=== PATIENT | female | born 1960 | race Caucasian/White ===

== ENCOUNTER 2022-04-26 20:10 | Emergency (ER) | payer OTHER ==
--- OUTSIDE RECORDS SUMMARY | 2022-04-26 20:13 | XMS REPORT | Continuity of Care Document ---
:1960 Author Organization [facility] t Address [address] [place] [address] Care Team Providers Name Role Phone CabaGoran Primary Care Physician DERRICK ZELAYA Attending Clinician Unavailable Kerry Donaldson MA Attending Clinician Unavailable DARREN DELGADILLO Attending Clinician Unavailable Darren Wheeler Attending Clinician Unknown, Attending Attending Clinician Unavailable ERICK TIDWELL Attending Clinician Unavailable Erick Tidwell MD Attending Clinician Payers Payer Name Policy Type Policy Number Effective Date Expiration Date Ramos [facility] [id number] 2021 00:00:00 Problems Condition Condition Condition Status Onset Resolution Last Treating Co mments Source Name Details Category Date Date Treatment Clinician Date No known No known Disease Unive rs active active ity of problems problems [facility] Allergies, Adverse Reactions, Alerts Allergy Allergy Status Severity Reaction(s) Onset Inactive Treating Comm ents Source Name Type Date Date Clinician NO KNOWN Drug Active Univers ALLERGIE Class ity of S [facility] Social History Social Habit Start Date Stop Date Quantity Comments Source Exposure to Not sure University SARS-CoV-2 [facility] (event) [place] Tobacco use and 2021-02-14 2021-02-14 Never used Universit y of exposure 00:00:00 00:00:00 [facility] Alcohol intake 2021-02-14 2021-02-14 Lifetime University of 00:00:00 00:00:00 non-drinker [facility] (finding) [place] Sex Ass[birth year] Universit y of 00:00:00 00:00:00 [facility] Smoking Status Start Date Stop Date Source Current every day smoker 2021-02-14 00:00:00 [facility] Medications Ordered Filled Start Stop Current Ordering Indication Dosage Frequency Signature Comments Components Source Medication Medication Date Date Medication? Clinician (SIG) Name Name No known 2020-08 No Univers medications 0-30 ity of 17:38: [address] No known 2020-08 No Univers medications 0-30 ity of 17:38: [address] No known 2020-08 No Univers medications 0-30 ity of 17:38: [address] No known No Univers medications ity of [facility] No known No Univers medications ity of [facility] Vital Signs Vital Name Observation Time Observation Value Comments Source Systolic blood 2021-06-22 21:56:00 133 mm[Hg] Univer sity of [facility] Diastolic blood 2021-06-22 21:56:00 81 mm[Hg] Unive rsity of [facility] Heart rate 2021-06-22 21:56:00 111 /min Universi ty [facility] Body temperature 2021-06-22 21:56:00 36.22 [facility] 2021-06-22 21:56:00 16 /min [facility] Body height 2021-06-22 21:56:00 [facility] Body weight 2021-06-22 21:56:00 102.558 kg [facility] BMI 2021-06-22 21:56:00 37.05 kg/m2 [facility] Oxygen saturation in 2021-06-22 21:56:00 99 /min [facility] Arterial blood by [facility] Pulse oximetry Branch Systolic blood 2021-02-14 15:16:00 126 mm[Hg] Univer sity of [facility] Diastolic blood 2021-02-14 15:16:00 55 mm[Hg] Unive rsity of [facility] Heart rate 2021-02-14 15:16:00 86 /min Universi ty [facility] Body temperature 2021-02-14 15:16:00 36.33 [facility] Respiratory rate 2021-02-14 15:16:00 17 /min [facility] Body weight 2021-02-14 15:16:00 110.814 kg [facility] Oxygen saturation in 2021-02-14 15:16:00 95 /min [facility] Arterial blood by [facility] Pulse oximetry Branch Procedures This patient has no known procedures. Encounters Start End Encounter Admission Attending Care Care Encounter Source Date/Time Date/Time Type Type Clinicians Facility Department ID 2022-03-13 [id number] ID 13:14:30 STANDISH [id number] [facility] 2022-03-12 Outpatient [facility] [id number] ID 13:41:19 STANDISH [id number] [facility] 2021-11-18 2021-11-18 Case ELENI Donaldson [id number] Univers 00:00:00 00:00:00 Management Kerry THOMPSON [id number] [id number] [id number] [place] 2021-06-22 2021-06-22 Outpatient [facility] [id number] [facility] 17:10:00 23:59:00 DARREN kuhn [facility] 2021-06-22 2021-06-22 [facility] ADAMA Delgadillo [id number] [facility] 17:10:00 23:59:00 Encounter Darren Patrick PEDIATRIC [id number] [id number] [id number] [facility] [address] [facility] 2021-06-22 2021-06-22 Outpatient [facility] [id number] Univers 17:10:00 17:10:00 DARREN [id number] willie o f [facility] 2021-06-22 2021-06-22 Urgent Darren Delgadillo [id number] Univers 16:51:20 17:06:20 Care Unknown, Attending PEDIATRIC [id number] [id number] [id number] [facility] 370 [facility] 2021-04-24 2021-04-24 Outpatient R [facility] [id number] Univers 10:20:00 10:20:[id number] [facility] 2021-04-24 2021-04-24 Outpatient R [facility] [id number] Univers 10:20:00 10:20:[address] [facility] 2021-02-14 2021-02-14 Office Adama Tidwell [id number] Univers 09:59:43 11:33:12 Visit Erick Pediatric [id number] [id number] [id number] [facility] 059 [facility] 2021-02-14 2021-02-14 Outpatient Nkechi TIDWELL [facility] [id number] Univers 10:20:00 10:20:00 ERICK tapia [facility] Results This patient has no known results.
[2022-04-26] MEDS ORDERED: MORPHINE 2 MG/ML SYR ONE ×3 (20:47→22:28)
[2022-04-26] MEDS ORDERED: NA CHLORIDE 0.9% 500 ML ONE (20:48)
[2022-04-26] MEDS ORDERED: ONDANSETRON 4 MG/2 ML VIAL ONE ×3 (20:48→23:05)
--- NOTE | 2022-04-26 20:57 | RAD REPORT ---
EXAM DESCRIPTION: RAD - Chest Single View - 04/26/2022 8:47 pm CLINICAL HISTORY: COUGH COMPARISON: Chest Pa And Lat (2 Views) dated 12/17/2020 FINDINGS: Lines: None. Lungs: No evidence of edema or pneumonia. Pleural: No significant pleural effusions or pneumothorax. Cardiac: The heart size is within normal limits. Mediastinum: Within normal limits. Bones: No acute fractures. Other: None IMPRESSION: No acute cardiopulmonary disease.
[2022-04-26 21:09] LABS: Urine Blood Negative (Negative); Urine Glucose Negative (Negative); Urine Protein Negative (Negative); Urine pH 5.5 (5.0-7.0)
[2022-04-26 21:19] LABS: Potassium 3.8 mmol/L (3.5-5.1)
[2022-04-26 21:35] LABS: Absolute Lymphocytes (CBC) 2.5 K/uL (0.7-4.9); Hematocrit 27.3 % (36.0-45.0); Lymphocytes % 13.5 % (15.3-44.8); MCV 63.2 fL (80-100); RBC Red Blood Cell Count 4.32 M/uL (3.86-4.86)
[2022-04-26 23:02] LABS: Anisocytosis 1+; Blood Morphology Comment NOTED (NOT SEEN); Hypochromasia 2+; Platelet Estimate INCR; Target Cells FEW; White Blood Cell Scan OK (OK)
[2022-04-26 23:03] LABS: Ovalocytes 2+; Stomatocytes 1+
[2022-04-26] MEDS ORDERED: HYDROMORPHONE HCL 0.5 MG/0.5 ML INJ ONE (23:05)
[2022-04-26] MEDS ORDERED: KETOROLAC 30 MG/ML INJ ONE (23:13)
--- NOTE | 2022-04-26 23:51 | RAD REPORT ---
EXAM DESCRIPTION: CT - Head C Spine Cap Jessica Jerez - 04/26/2022 11:38 pm CLINICAL HISTORY: Trauma, head and neck injury. Chest, abdomen and pelvis pain. trauma COMPARISON: <Comparisons> TECHNIQUE: CT head without contrast. CT cervical spine without contrast with coronal and sagittal reformatted images. CT chest, abdomen and pelvis with IV contrast and coronal and sagittal reformatted images of the spin e. All CT scans are performed using dose optimization technique as appropriate and may include automated exposure control or mA/KV adjustment according to patient size. FINDINGS: CT HEAD WITHOUT CONTRAST: No intracranial hemorrhage, hydrocephalus or extra-axial fluid collection. No acute large vascular te rritory infarct. The paranasal sinuses and mastoids are clear. The calvarium is intact. CT CERVICAL SPINE WITHOUT CONTRAST: No fracture or subluxation. The prevertebral soft tissues are normal in thickness. CT CHEST, ABDOMEN, PELVIS: Thorax: Chest Wall: No abnormal mass Lungs: No acute abnormality. Pleura: No effusions or pneumothorax. Frida/Mediastinum: No lymphadenopathy. Aorta/Pulmonary Arteries: Unremarkable Heart: Normal size. Abdomen/Pelvis: Liver: No acute abnormality or suspicious lesions. Biliary: No biliary ductal dilatation. Stomach: No significant focal abnormality. Duodenum: No significant focal abnormality. Pancreas: No significant abnormality. Spleen: No significant abnormality. Adrenal: No suspicious lesions. Kidney/ureter: No hydronephrosis. No renal calculi. Retroperitoneum: No retroperitoneal adenopathy. Vascular: No aneurysm. Atherosclerosis. Bowel: No significant focal abnormality. Peritoneum: No ascites or free air. Bladder: Grossly unremarkable. Reproductive: No adnexal masses. Hysterectomy. Bones: No acute fracture. L5-S1 fusion. There are a few nondisplaced subacute or remote left-sided ri b fractures. Other: n/a IMPRESSION: Negative for acute traumatic findings. Incidental findings as noted above.
--- NOTE | 2022-04-27 00:03 | ER ---
Nurse's Notes [facility] Name: Yumiko Bernard Age: 61 yrs Sex: Female : 1960 Arrival Date: 04/26/2022 Time: 20:13 Bed 17 Private MD: Diagnosis: Fall on same level, unspecified;Strain of muscle and tendon of front wall of thorax;Strain of muscle and tendon of back wall of thorax;Unspecified injury of head, initial encounter;Multiple fractures of ribs, left side Presentation: 04/26 20:15 Chief complaint: EMS states: pt with same level fall, landed flat on her back. Pt kd3 denies loosing consciousness and denies hitting her head. pt does not take blood thinners. pt in cervical collar on arrival and complains of neck pain and right upper arm pain. Pt took a half of a hydrocodone about 4 hours ago, so no pain medications given en route. no bruising or deformities noted. c collar left in place. Coronavirus screen: Vaccine status: Patient reports being unvaccinated. Ebola Screen: No symptoms or risks identified at this time. Initial Sepsis Screen: Does the patient meet any 2 criteria? No. Patient's initial sepsis screen is negative. Does the patient have a suspected source of infection? No. Patient's initial sepsis screen is negative. Risk Assessment: Do you want to hurt yourself or someone else? Patient reports no desire to harm self or others. Onset of symptoms was April 26, 2022. 20:15 Method Of Arrival: EMS: [facility] kd3 20:15 Acuity: RIMA 3 kd3 Triage Assessment: 20:20 General: Appears uncomfortable, Behavior is calm, cooperative. Pain: Complains of pain kd3 in right posterior aspect of neck and left posterior aspect of neck. Neuro: Level of Consciousness is awake, alert, obeys commands, Oriented to person, place, time, situation. Cardiovascular: Patient's skin is warm and dry. Respiratory: Airway is patent Trachea midline Respiratory effort is even, unlabored, Respiratory pattern is regular, symmetrical. Historical: - Allergies: 20:20 No Known Allergies; kd3 - PMHx: 20:20 Diabetes mellitus; Hypertensive disorder; kd3 - PSHx: 20:20 back surgury; knee replacment; kd3 - Immunization history:: Adult Immunizations up to date, Client reports having NOT received the Covid vaccine. - Social history:: Smoking status: Patient reports the use of cigarette tobacco products, smokes one pack cigarettes per day. Screenin:22 Abuse screen: Denies threats or abuse. Denies injuries from another. Nutritional kd3 screening: No deficits noted. Tuberculosis screening: No symptoms or risk factors identified. Fall Risk IV access (20 points). Assessment: 20:25 General: see triage . kd3 21:09 Reassessment: No changes from previously documented assessment. Patient and/or family kd3 updated on plan of care and expected duration. Pain level reassessed. Patient is alert, oriented x 3, equal unlabored respirations, skin warm/dry/pink. General: Appears uncomfortable. Neuro: 21:10 General: pt now complains of left sided rib pain . kd3 22:01 General: Pt returned to room from CT. Pt refusing CT because it is "uncomfortable" for kd3 her to lay down. Pt continuing to express discomfort from the C collar. pt educated regarding protocol regarding C collar placement and diagnostic scans and possible consequences or removing a c collar before the results of the CT are obtained. Pt verbalized understanding and is agreeable to leaving the C collar in place and trying the scan again after more pain medications are administered. . 22:56 General: pt now in CT scan . kd3 22:59 General: Pt returned to room, still refusing CT scan . kd3 23:05 General: Behavior is anxious, Pt continued to have anxiety and express pain regarding kd3 the CT scan. More pain medications administered. This RN accompanied the pt to CT Scan. CT scan successful. . Vital Signs: 20:15 BP 170 / 73; Pulse 92; Resp 18; Pulse Ox 98% on R/A; Pain 3/10; kd3 20:24 Temp 98.8(O); Weight 101.15 kg; Height 5 ft. 5 in. (165.10 cm); kd3 21:24 BP 164 / 63; Pulse 87; Resp 17; Pulse Ox 99% on R/A; kd3 21:50 Pain 9/10; kd3 22:20 Pain 8/10; kd3 23:55 BP 160 / 74; Pulse 91; Resp 19; Pulse Ox 98% on R/A; kd3 20:24 Body Mass Index 37.11 (101.15 kg, 165.10 cm) kd3 Loree Coma Score: 21:50 Eye Response: spontaneous(4). Verbal Response: oriented(5). Motor Response: obeys antonia commands(6). Total: 15. 21:50 Eye Response: spontaneous(4). Verbal Response: oriented(5). Motor Response: obeys antonia commands(6). Total: 15. ED Course: 20:13 Patient arrived in ED. kl 20:15 Blanca Yanez RN is Primary Nurse. kd3 20:17 Tony Londono MD is Attending Physician. antonia 20:20 Triage completed. kd3 20:20 Arm band placed on left wrist. kd3 20:22 Patient has correct armband on for positive identification. kd3 20:22 No provider procedures requiring assistance completed. Maintain EMS IV. Dressing kd3 intact. Good blood return noted. Site clean \\T\\ dry. Gauge \\T\\ site: 20 g right A/C. 20:30 Patient has correct armband on for positive identification. Bed in low position. Call mh5 light in reach. Side rails up X2. Warm blanket given. Pillow given. interviewing clerk on. Pulse ox on. NIBP on. 20:30 Initial lab(s) drawn, by mi, sent to lab. Maintain EMS IV. Dressing intact. Good blood mh5 return noted. Site clean \\T\\ dry. 20:49 XRAY Chest (1 view) In Process Unspecified. EDMS 20:58 Basic Metabolic Panel Sent. zm 20:58 CBC with Diff Sent. zm 20:58 Type And Screen Sent. zm 23:40 Head C Spine Cap W Con In Process Unspecified. EDMS 04/27 00:02 Osorio Horta MD is Referral Physician. antonia 00:12 IV discontinued, intact, bleeding controlled, No redness/swelling at site. Pressure kd3 dressing applied. Administered Medications: 04/26 20:43 Drug: NS 0.9% 500 ml Route: IV; Rate: bolus; Site: right antecubital; kd3 04/27 00:14 Follow up: Rate change 500 ml; IV Status: Completed infusion kd3 04/26 20:43 Not Given (Patient Refused; "I am hurting, but not enough for morphine."): morphine 2 kd3 mg IVP once over 4 mins 20:43 Not Given (Patient Refused): Zofran (Ondansetron) 4 mg IVP once; over 2 minutes kd3 21:51 Drug: Zofran (Ondansetron) 4 mg Route: IVP; Site: right antecubital; kd3 22:21 Follow up: Response: No adverse reaction kd3 21:51 Drug: morphine 2 mg Route: IVP; Infused Over: 4 mins; Site: right antecubital; kd3 22:21 Follow up: Response: No adverse reaction; Pain is unchanged, physician notified kd3 22:21 Drug: morphine 2 mg Route: IVP; Infused Over: 4 mins; Site: right antecubital; kd3 04/27 00:13 Follow up: Response: No adverse reaction; Pain is decreased kd3 04/26 23:03 Drug: Dilaudid (HYDROmorphone) 1 mg Route: IVP; Site: right antecubital; tw5 04/27 00:13 Follow up: Response: No adverse reaction; Pain is decreased kd3 04/26 23:03 Drug: Zofran (Ondansetron) 4 mg Route: IVP; Site: right antecubital; tw5 04/27 00:13 Follow up: Response: No adverse reaction kd3 04/26 23:05 Drug: TORadol (ketorolac) 30 mg Route: IVP; Site: right antecubital; kd3 04/27 00:12 Follow up: Response: No adverse reaction; Pain is decreased kd3 Medication: 04/26 20:23 VIS not applicable for this client. kd3 Outcome: 04/27 00:02 Discharge ordered by MD. knight 00:12 Discharged to home with family. kd3 00:12 Condition: stable 00:12 Discharge instructions given to patient, family, Instructed on discharge instructions, follow up and referral plans. Demonstrated understanding of instructions, follow-up care, medications, Prescriptions given X 3. 00:13 Patient left the ED. kd3 Signatures: Dispatcher [employer] EDTheresa Elmore RN RN kl Anderson, Corey, MD MD cha Martinez, Maria Maritza Elliott 5 Blanca Yanez RN RN kd3 Martinez, Zaina zm Corrections: (The following items were deleted from the chart) 04/26 22:55 22:51 General: kd3 kd3 22:56 22:52 General: Pt returned to room from CT. Pt refusing CT because it is kd3 "uncomfortable" for her to lay down. Pt continuing to express discomfort from the C collar. pt educated regarding protocol regarding C collar placement and diagnostic scans and possible consequences or removing a c collar before the results of the CT are obtained. Pt verbalized understanding and is agreeable to leaving the C collar in place and trying the scan again after more pain medications are administered. . kd3
--- NOTE | 2022-04-27 00:04 | EDPHYS ---
Physician Documentation [facility] Name: Yumiko Bernard Age: 61 yrs Sex: Female : 1960 Arrival Date: 04/26/2022 Time: 20:13 Bed 17 Private MD: MAGUE Physician Tony Londono HPI: 04/26 21:50 This 61 yrs old Female presents to ER via EMS with complaints of fall on wet antonia porch. 21:50 The patient or guardian reports pain, swelling, tenderness. The complaints affect the antonia left side of the back of head, left occipital area, left base of the skull, right side of the back of head, right occipital area and right base of the skull. Context of injury: The problem was sustained at home. Onset: The symptoms/episode began/occurred just prior to arrival. Associated signs and symptoms: Loss of consciousness: This patient did not experience any loss of consciousness. Details of fall: The patient fell from an upright position, while walking. Associated injuries: The patient sustained injury to the head, neck injury, upper back injury, injury to the low back, injury to the chest, contusion, pain with breathing, pain with movement, tenderness. Severity of symptoms: At their worst the symptoms were mild, in the emergency department the symptoms have resolved. The patient or guardian reports chest pain that is located primarily in the anterior chest wall. Historical: - Allergies: 20:20 No Known Allergies; kd3 - PMHx: 20:20 Diabetes mellitus; Hypertensive disorder; kd3 - PSHx: 20:20 back surgury; knee replacment; kd3 - Immunization history:: Adult Immunizations up to date, Client reports having NOT received the Covid vaccine. - Social history:: Smoking status: Patient reports the use of cigarette tobacco products, smokes one pack cigarettes per day. ROS: 21:50 Constitutional: Negative for fever, chills, and weight loss, Eyes: Negative for injury, antonia pain, redness, and discharge, ENT: Negative for injury, pain, and discharge, Neck: Negative for injury, pain, and swelling, Cardiovascular: Negative for chest pain, palpitations, and edema, Respiratory: Negative for shortness of breath, cough, wheezing, and pleuritic chest pain, Abdomen/GI: Negative for abdominal pain, nausea, vomiting, diarrhea, and constipation, Back: Negative for injury and pain, : Negative for injury, bleeding, discharge, and swelling, MS/Extremity: Negative for injury and deformity, Skin: Negative for injury, rash, and discoloration, Neuro: Negative for headache, weakness, numbness, tingling, and seizure, Psych: Negative for depression, anxiety, suicide ideation, homicidal ideation, and hallucinations, Allergy/Immunology: Negative for hives, rash, and allergies, Endocrine: Negative for neck swelling, polydipsia, polyuria, polyphagia, and marked weight changes, Hematologic/Lymphatic: Negative for swollen nodes, abnormal bleeding, and unusual bruising. Exam: 21:50 Constitutional: This is a well developed, well nourished patient who is awake, alert, antonia and in no acute distress. Head/Face: Normocephalic, atraumatic. Eyes: Pupils equal round and reactive to light, extra-ocular motions intact. Lids and lashes normal. Conjunctiva and sclera are non-icteric and not injected. Cornea within normal limits. Periorbital areas with no swelling, redness, or edema. ENT: Nares patent. No nasal discharge, no septal abnormalities noted. Tympanic membranes are normal and external auditory canals are clear. Oropharynx with no redness, swelling, or masses, exudates, or evidence of obstruction, uvula midline. Mucous membranes moist. Neck: Trachea midline, no thyromegaly or masses palpated, and no cervical lymphadenopathy. Supple, full range of motion without nuchal rigidity, or vertebral point tenderness. No Meningismus. Cardiovascular: Regular rate and rhythm with a normal S1 and S2. No gallops, murmurs, or rubs. Normal PMI, no JVD. No pulse deficits. Respiratory: Lungs have equal breath sounds bilaterally, clear to auscultation and percussion. No rales, rhonchi or wheezes noted. No increased work of breathing, no retractions or nasal flaring. Abdomen/GI: Soft, non-tender, with normal bowel sounds. No distension or tympany. No guarding or rebound. No evidence of tenderness throughout. Back: No spinal tenderness. No costovertebral tenderness. Full range of motion. Female : Normal external genitalia. Skin: Warm, dry with normal turgor. Normal color with no rashes, no lesions, and no evidence of cellulitis. MS/ Extremity: Pulses equal, no cyanosis. Neurovascular intact. Full, normal range of motion. Neuro: Awake and alert, GCS 15, oriented to person, place, time, and situation. Cranial nerves II-XII grossly intact. Motor strength 5/5 in all extremities. Sensory grossly intact. Cerebellar exam normal. Normal gait. Psych: Awake, alert, with orientation to person, place and time. Behavior, mood, and affect are within normal limits. 21:50 Chest/axilla: Inspection: normal, no acute changes, Palpation: tenderness, that is mild, of the anterior aspect of left upper chest, left lateral posterior chest, left lateral anterior chest and left breast. 21:50 Cardiovascular: Rate: normal, Rhythm: regular, Pulses: Pulses are 4+ in bilateral radial, brachial, femoral, popliteal, posterior tibial and and dorsalis pedis arteries.. Heart sounds: normal, Edema: is not appreciated. Vital Signs: 20:15 BP 170 / 73; Pulse 92; Resp 18; Pulse Ox 98% on R/A; Pain 3/10; kd3 20:24 Temp 98.8(O); Weight 101.15 kg; Height 5 ft. 5 in. (165.10 cm); kd3 21:24 BP 164 / 63; Pulse 87; Resp 17; Pulse Ox 99% on R/A; kd3 21:50 Pain 9/10; kd3 22:20 Pain 8/10; kd3 23:55 BP 160 / 74; Pulse 91; Resp 19; Pulse Ox 98% on R/A; kd3 20:24 Body Mass Index 37.11 (101.15 kg, 165.10 cm) kd3 Loree Coma Score: 21:50 Eye Response: spontaneous(4). Verbal Response: oriented(5). Motor Response: obeys antonia commands(6). Total: 15. 21:50 Eye Response: spontaneous(4). Verbal Response: oriented(5). Motor Response: obeys antonia commands(6). Total: 15. MDM: 20:17 Patient medically screened. [facility] 04/26 20:35 Order name: Basic Metabolic Panel; Complete Time: 21:43 [facility] 04/26 20:35 Order name: CBC with Diff 04/26 20:35 Order name: Type And Screen [facility] 04/26 20:38 Order name: Glucose, Ancillary Testing; Complete Time: 21:43 EDMS 04/26 21:10 Order name: Urine Dipstick-Ancillary; Complete Time: 21:43 [facility] 04/26 20:35 Order name: CT Traumagram (Head C Spine CAP W Con) [facility] 04/26 20:35 Order name: XRAY Chest (1 view); Complete Time: 21:43 [facility] 04/26 20:39 Order name: Head C Spine Cap W Con [facility] 04/26 21:47 Order name: INCENTIVE SPIROMETRY [facility] 04/26 22:21 Order name: ABO/RH no charge [facility] 04/26 23:03 Order name: CBC Smear Scan [facility] 04/26 20:35 Order name: Labs collected and sent; Complete Time: 20:58 [facility] 04/26 20:35 Order name: Urine Dipstick-Ancillary (obtain specimen); Complete Time: 21:09 [facility] Administered Medications: 20:43 Drug: NS 0.9% 500 ml Route: IV; Rate: bolus; Site: right antecubital; kd3 04/27 00:14 Follow up: Rate change 500 ml; IV Status: Completed infusion [facility] 04/26 20:43 Not Given (Patient Refused; "I am hurting, but not enough for morphine."): morphine 2 kd3 mg IVP once over 4 mins 20:43 Not Given (Patient Refused): Zofran (Ondansetron) 4 mg IVP once; over 2 minutes kd3 21:51 Drug: Zofran (Ondansetron) 4 mg Route: IVP; Site: right antecubital; kd3 22:21 Follow up: Response: No adverse reaction kd3 21:51 Drug: morphine 2 mg Route: IVP; Infused Over: 4 mins; Site: right antecubital; kd3 22:21 Follow up: Response: No adverse reaction; Pain is unchanged, physician notified kd3 22:21 Drug: morphine 2 mg Route: IVP; Infused Over: 4 mins; Site: right antecubital; kd3 04/27 00:13 Follow up: Response: No adverse reaction; Pain is decreased 3 04/26 23:03 Drug: Dilaudid (HYDROmorphone) 1 mg Route: IVP; Site: right antecubital; tw5 04/27 00:13 Follow up: Response: No adverse reaction; Pain is decreased kd3 04/26 23:03 Drug: Zofran (Ondansetron) 4 mg Route: IVP; Site: right antecubital; tw5 04/27 00:13 Follow up: Response: No adverse reaction kd3 04/26 23:05 Drug: TORadol (ketorolac) 30 mg Route: IVP; Site: right antecubital; kd3 04/27 00:12 Follow up: Response: No adverse reaction; Pain is decreased kd3 Disposition Summary: 04/27/22 00:02 Discharge Ordered Location: Home [place] Problem: new antonia Symptoms: have improved antonia Condition: Stable antonia Diagnosis - Fall on same level, unspecified antonia - Strain of muscle and tendon of front wall of thorax antonia - Strain of muscle and tendon of back wall of thorax antonia - Unspecified injury of head, initial encounter antonia - Multiple fractures of ribs, left side antonia Followup: antonia - With: Private Physician - When: 2 - 3 days - Reason: Recheck today's complaints, Continuance of care, Re-evaluation by your physician Followup: antonia - With: - When: 2 - 3 days - Reason: Recheck today's complaints, Continuance of care, Re-evaluation by your physician Discharge Instructions: - Discharge Summary Sheet antonia - Chest Wall Pain antonia - Head Injury, Adult antonia - How to Use an Incentive Spirometer antonia - Chest Wall Pain, Gfok-[id number]-[id number] antonia - Rib Fracture antonia - Head Injury, Adult, Gham-rr-[id number] antonia - Rib Fracture, Aqwi-rx-Clsd antonia Forms: - Medication Reconciliation Form antonia - Thank You Letter antonia - Antibiotic Education antonia - Prescription Opioid Use [facility] Prescriptions: - Diclofenac Sodium 75 mg Oral tablet,delayed release (DR/EC) - take 1 tablet by ORAL route 2 times per day; 20 tablet; Refills: 0, Product [facility] Selection Permitted - Cyclobenzaprine 5 mg Oral Tablet - take 1 tablet by ORAL route 3 times per day As needed; 15 tablet; Refills: 0, [facility] Product Selection Permitted - Tylenol-Codeine #3 300 mg-30 mg Oral - take 2 tablet by ORAL route every 6 hours; 24 tablet; Refills: 0, Product [facility] Selection Permitted Signatures: Dispatcher [employer] Tony Parikh MD MD cha Wood, Tiffany tw5 Blanca Yanez RN RN kd3
[2022-04-27 01:15] VITALS: TEMP 98.8
[2022-04-27 01:24] VITALS: BP 160/74; O2SAT 98
== END 2022-04-27 00:13 | disposition home or self-care (01) ==
LOC: ER 20:10
DX: S22.42XA Multiple fractures of ribs, left side, initial encounter for closed fracture (principal); S29.011A Strain of muscle and tendon of front wall of thorax, initial encounter; S29.012A Strain of muscle and tendon of back wall of thorax, initial encounter; S00.83XA Contusion of other part of head, initial encounter; W18.30XA Fall on same level, unspecified, initial encounter; I10 Essential (primary) hypertension; F17.210 Nicotine dependence, cigarettes, uncomplicated
CPT/HCPCS: 96361; 85025; 80048; 36415; 86900; 86850; 82565; 86901; 82947; 81003; 70450; 72125; 71260; 74177; 71045; 96375; 96374; 99284; Q9967; J2270 ×2; J1170; J7040; J2405 ×2

== ENCOUNTER 2022-08-05 21:41 | Emergency (ER) | payer OTHER ==
--- OUTSIDE RECORDS SUMMARY | 2022-08-05 22:02 | XMS REPORT | Continuity of Care Document ---
:1960 Author Organization [facility] t Address [address] [place] [address] [address] [place] [address] Care Team Providers Name Role Phone Goran Caba Primary Care Physician DERRICK ZELAYA Attending Clinician Unavailable Kerry Donaldson MA Attending Clinician Unavailable DARREN DELGADILLO Attending Clinician Unavailable Darren Wheeler Attending Clinician Unknown, Attending Attending Clinician Unavailable ERICK TIDWELL Attending Clinician Unavailable Erick Tidwell MD Attending Clinician Payers Payer Name Policy Type Policy Number Effective Date Expiration Date Ramos huntley [facility] [id number] 2021 00:00:00 Problems Condition Condition Condition Status Onset Resolution Last Treating Co mments Source Name Details Category Date Date Treatment Clinician Date No known No known Disease Unive rs active active ity of problems problems [facility] Allergies, Adverse Reactions, Alerts Allergy Allergy Status Severity Reaction(s) Onset Inactive Treating Comm ents Source Name Type Date Date Clinician NO KNOWN Drug Active Univers ALLERGIE Class ity of S [facility] Social History Social Habit Start Date Stop Date Quantity Comments Source Exposure to Not sure [facility] SARS-CoV-2 [facility] (event) Branch Tobacco use and 2021-02-14 2021-02-14 Never used Universit y of exposure 00:00:00 00:00:00 [facility] Alcohol intake 2021-02-14 2021-02-14 Lifetime University of 00:00:00 00:00:00 non-drinker [facility] (finding) [place] Sex Ass[birth year] Universit y of 00:00:00 00:00:00 [facility] Smoking Status Start Date Stop Date Source Current every day smoker 2021-02-14 00:00:00 [facility] Medications Ordered Filled Start Stop Current Ordering Indication Dosage Frequency Signature Comments Components Source Medication Medication Date Date Medication? Clinician (SIG) Name Name No known 2020-08 No Univers medications 0-30 ity of 17:38: [address] No known 2020-08 No Univers medications 0-30 ity of 17:38: [address] No known 2020-08 No Univers medications 0-30 ity of 17:38: [address] No known No Univers medications ity of [facility] No known No Univers medications ity of [facility] Vital Signs Vital Name Observation Time Observation Value Comments Source Systolic blood 2021-06-22 21:56:00 133 mm[Hg] Univer [facility]ity of [facility] Diastolic blood 2021-06-22 21:56:00 81 mm[Hg] Unive rsity of [facility] Heart rate 2021-06-22 21:56:00 111 /min Universi ty of [facility] Body temperature 2021-06-22 21:56:00 36.22 [facility] Res[facility] rate 2021-06-22 21:56:00 16 /min [facility] Body height 2021-06-22 21:56:00 166.[address] [facility] Body weight 2021-06-22 21:56:00 102.[address] [facility] BMI 2021-06-22 21:56:00 37[facility]05 [facility] Oxygen saturation in 2021-06-22 21:56:00 99 /min [facility] Arterial blood by [facility] Pulse oximetry Branch Systolic blood 2021-02-14 15:16:00 126 mm[Hg] Univer sity of [facility] Diastolic blood 2021-02-14 15:16:00 55 mm[Hg] Unive rsity [facility] Heart rate 2021-02-14 15:16:00 86 /min Universi ty of [facility] Body temperature 2021-02-14 15:16:00 36.33 [facility]da [facility] ersity of [facility] Respiratory rate 2021-02-14 15:16:00 17 /min [facility] Body weight 2021-02-14 15:16:00 110.814 [facility] Oxygen saturation in 2021-02-14 15:16:00 95 /min [facility] Arterial blood by [facility] Pulse oximetry Branch Procedures This patient has no known procedures. Encounters Start End Encounter Admission Attending Care Care Encounter Source Date/Time Date/Time Type Type Clinicians Facility Department ID 2022-03-13 [facility] [id number] [place] 13:14:30 DERRICK [id number] [facility] 2022-03-12 [facility] [id number] [place] 13:41:19 DERRICK [id number] [facility] 2021-11-18 2021-11-18 Case ELENI Donaldson [id number] Univers 00:00:00 00:00:00 Management Kerry THOMPSON [id number] [id number] [id number] [facility] 086 Branch 2021-06-22 2021-06-22 Outpatient R FIFI [facility] [id number] [facility] 17:10:00 23:59:[address] [facility] 2021-06-22 2021-06-22 [facility] ADAMA Delgadillo [id number] Univers 17:10:00 23:59:00 Encounter Darren Patrick PEDIATRIC [id number] [id number] [id number] [facility] 808 Branch [facility] 2021-06-22 2021-06-22 Urgent Darren Delgadillo [id number] Univers 16:51:20 17:06:20 Care Unknown, Attending PEDIATRIC [id number] [id number] [id number] [facility] 370 [facility] 2021-04-24 2021-04-24 Outpatient R DIANN [facility] [id number] Univers 10:20:00 10:20:[address] [facility] 2021-02-14 2021-02-14 Office Adama Tidwell [id number] [facility] 09:59:43 11:33:12 Visit Erick Pediatric [id number] [id number] [id number] [facility] Primary 059 [facility] 2021-02-14 2021-02-14 Outpatient R DIANN [facility] [id number] Univers 10:20:00 10:20:[address] [facility] Results This patient has no known results.
[2022-08-05] MEDS ORDERED: HYDROCODONE/APAP 7.5/325 MG TAB ONE (23:04)
[2022-08-05] MEDS ORDERED: IBUPROFEN 400 MG TAB ONE (23:04)
--- NOTE | 2022-08-05 23:56 | ER ---
Nurse's Notes [facility] Name: Yumiko Bernard Age: 61 yrs Sex: Female : 1960 Arrival Date: 08/05/2022 Time: 21:44 Bed 10 Private MD: Diagnosis: Pain in right wrist Presentation: 08/05 22:34 Chief complaint: Patient states: "I woke up either Thursday or Thursday with my right vc1 wrist swollen and it hurts so bad I can't move it. I went to another ER the other day and they said it was tendonitis and gave me Toradol and a lidocaine patch but they are not helping at all. They didn't even do an X-ray.". Coronavirus screen: Vaccine status: Patient reports being unvaccinated. Ebola Screen: No symptoms or risks identified at this time. Initial Sepsis Screen: Does the patient meet any 2 criteria? No. Patient's initial sepsis screen is negative. Does the patient have a suspected source of infection? No. Patient's initial sepsis screen is negative. Risk Assessment: Do you want to hurt yourself or someone else? Patient reports no desire to harm self or others. Onset of symptoms is unknown. 22:34 Method Of Arrival: Ambulatory vc1 22:34 Acuity: RIMA 3 vc1 Triage Assessment: 22:39 General: Appears in no apparent distress. uncomfortable, obese, Behavior is calm, vc1 cooperative, appropriate for age. Pain: Complains of pain in right wrist Pain does not radiate. Pain currently is 10 out of 10 on a pain scale. Quality of pain is described as sharp, Pain began suddenly, 2-3 days ago. Aggravated by repositioning, Noted to be guarding, resistant to movement. EENT: No deficits noted. Neuro: No deficits noted. Cardiovascular: No deficits noted. Respiratory: No deficits noted. GI: No deficits noted. : No deficits noted. Derm: No deficits noted. Musculoskeletal: Range of motion: limited in right wrist Swelling present in right wrist. Historical: - Allergies: 22:37 PENICILLINS; vc1 - Home Meds: 22:37 Furosemide Oral [Active]; Metformin Oral 2 times per day [Active]; clonidine HCl 0.2 mg vc1 Oral tab 1 tab nightly [Active]; gabapentin oral [Active]; Omeprazole Oral once daily [Active]; - PMHx: 22:37 diabetes mellitus; Hypertensive disorder; Gastric reflux; neuropathy; vc1 - PSHx: 08/06 00:05 back surgury; knee replacment; eh3 - Immunization history:: Client reports having NOT received the Covid vaccine. - Social history:: Smoking status: Patient reports the use of cigarette tobacco products, smokes one-half pack cigarettes per day. Screenin/13 22:30 [facility] ED Fall Risk Assessment (Adult) History of falling in the last 3 months, eh3 including since admission No falls in past 3 months (0 pts) Confusion or Disorientation No (0 pts) Intoxicated or Sedated No (0 pts) Impaired Gait No (0 pts) Mobility Assist Device Used No (0 pt) Altered Elimination No (0 pt) Score/Fall Risk Level 0 - 2 = Low Risk Oriented to surroundings, Maintained a safe environment, Hourly rounding (assess needs \\T\\ fall precautionary measures) done. Humpty Dumpty Scale Fall Assessment Tool (age< 18yrs) Age 13 years and above (1 pt) Gender Female (1 pt) Diagnosis Other diagnosis (1 pt) Cognitive Impairments Oriented to own ability (1 pt) Environmental Factors Patient placed in bed (2 pts) Response to Surgery/Sedation/Anesthesia More than 48 hours/ None (1 pt) Medication Usage Other medications/ None (1 pt) Fall Risk Score/ Level Low Fall Risk: </= 11 points. 22:41 Abuse screen: Denies threats or abuse. Nutritional screening: No deficits noted. vc1 Tuberculosis screening: No symptoms or risk factors identified. Fall Risk No fall in past 12 months (0 pts). Assessment: 22:30 General: Appears in no apparent distress. uncomfortable, Behavior is calm, cooperative, eh3 appropriate for age. Pain: Complains of pain in right wrist. Neuro: Level of Consciousness is awake, alert, obeys commands, Oriented to person, place, time, situation. Cardiovascular: Capillary refill < 3 seconds Patient's skin is warm and dry. Respiratory: Airway is patent Respiratory effort is even, unlabored, Respiratory pattern is regular, symmetrical. GI: No signs and/or symptoms were reported involving the gastrointestinal system. Abdomen is round non-distended. : No signs and/or symptoms were reported regarding the genitourinary system. EENT: No signs and/or symptoms were reported regarding the EENT system. Derm: No signs and/or symptoms reported regarding the dermatologic system. Musculoskeletal: Circulation, motion, and sensation intact. Range of motion: limited in right wrist. Vital Signs: 22:34 BP 160 / 76; Pulse 85; Resp 20; Temp 98.4(O); Pulse Ox 100% ; Weight 97.52 kg; Height 5 vc1 ft. 5 in. (165.10 cm); Pain 10/10; 23:30 BP 164 / 71; Pulse 89; Resp 18; Pulse Ox 99% on R/A; eh3 22:34 Body Mass Index 35.78 (97.52 kg, 165.10 cm) vc1 ED Course: 21:44 Patient arrived in ED. bp1 22:15 Tony Henry PA is PHCP. cp 22:15 Theo Astorga MD is Attending Physician. cp 22:37 Triage completed. vc1 22:40 Arm band placed on left wrist. vc1 22:41 Patient has correct armband on for positive identification. Bed in low position. Call vc1 light in reach. Side rails up X2. Pulse ox on. NIBP on. Warm blanket given. 22:56 XRAY Wrist RIGHT 3 view In Process Unspecified. EDMS 23:01 Monica Hassan, CELIA is Primary Nurse. eh3 23:54 Star Amanda MD is Referral Physician. cp 23:54 Referral Physician role handed off by Star Amanda MD cp 23:54 Star Amanda MD is Referral Physician. cp 08/06 00:04 Patient did not have IV access during this emergency room visit. eh3 00:04 No provider procedures requiring assistance completed. eh3 Administered Medications: 08/05 23:05 Drug: Hydrocodone-Acetaminophen (7.5 mg-325 mg) 1 tabs Route: PO; eh3 08/06 00:09 Follow up: Response: Pain is decreased eh3 08/05 23:05 Drug: Ibuprofen 800 mg Route: PO; eh3 08/06 00:09 Follow up: Response: Pain is decreased eh3 00:02 Drug: predniSONE 60 mg Route: PO; eh3 00:09 Follow up: Response: Pain is decreased eh3 Medication: 00:05 VIS not applicable for this client. eh3 Outcome: 08/05 23:55 Discharge ordered by MD. harley 08/06 00:05 Discharged to home ambulatory, with friend. eh3 Condition: stable Discharge instructions given to patient, friend, Instructed on discharge instructions, follow up and referral plans. medication usage, Demonstrated understanding of instructions, follow-up care, medications, Prescriptions given X 1. 00:09 Patient left the ED. eh3 Signatures: Dispatcher [employer] EDMS Tony Henry PA PA cp [place], Brittany bp1 Calcote, Vanessa, RN RN vc1 Monica Hassan RN RN eh3 Corrections: (The following items were deleted from the chart) 00:05 08/05 22:30 Patient did not have IV access during this emergency room visit. eh3 eh3
--- NOTE | 2022-08-05 23:56 | EDPHYS ---
Physician Documentation [facility] Name: Yumiko Bernard Age: 61 yrs Sex: Female : 1960 Arrival Date: 08/05/2022 Time: 21:44 Bed 10 Private MD: ED Physician Theo Astorga HPI: 08/05 22:40 This 61 yrs old Female presents to ER via Ambulatory with complaints of Wrist Pain. cp 22:40 The patient or guardian reports pain, swelling, tenderness. The complaints affect the cp right wrist diffusely. 22:40 Context: resulted from an unknown cause. cp 22:40 Onset: The symptoms/episode began/occurred last week. Associated signs and symptoms: cp The patient has no apparent associated signs or symptoms. 22:40 The patient has been recently seen by a physician: in emergency department, with cp similar presenting complaints, was given a prescription for pain medications. Historical: - Allergies: 22:37 PENICILLINS; vc1 - Home Meds: 22:37 Furosemide Oral [Active]; Metformin Oral 2 times per day [Active]; clonidine HCl 0.2 mg vc1 Oral tab 1 tab nightly [Active]; gabapentin oral [Active]; Omeprazole Oral once daily [Active]; - PMHx: 22:37 diabetes mellitus; Hypertensive disorder; Gastric reflux; neuropathy; vc1 - PSHx: 08/06 00:05 back surgury; knee replacment; eh3 - Immunization history:: Client reports having NOT received the Covid vaccine. - Social history:: Smoking status: Patient reports the use of cigarette tobacco products, smokes one-half pack cigarettes per day. ROS: 08/05 22:45 Constitutional: Negative for body aches, chills, fever, poor PO intake. cp 22:45 Eyes: Negative for injury, pain, redness, and discharge. cp 22:45 Cardiovascular: Negative for chest pain, edema, palpitations. 22:45 Respiratory: Negative for cough, shortness of breath, wheezing. 22:45 Abdomen/GI: Negative for abdominal pain, nausea, vomiting, and diarrhea. 22:45 MS/extremity: Positive for pain, swelling, tenderness, of the dorsum of right wrist, Negative for injury or acute deformity, decreased range of motion, paresthesias. Exam: 22:50 Constitutional: The patient appears in no acute distress, alert, awake, non-toxic, well cp developed, well nourished, uncomfortable. 22:50 Head/Face: Normocephalic, atraumatic. cp 22:50 Chest/axilla: Inspection: normal. 22:50 Cardiovascular: Rate: normal, Rhythm: regular, Pulses: Pulses are 2+ in right radial artery. 22:50 Respiratory: the patient does not display signs of respiratory distress, Respirations: normal, no use of accessory muscles, no retractions. 22:50 Musculoskeletal/extremity: Extremities: noted in the dorsal and radial side proximal right wrist : pain, swelling, tenderness, There is no evidence of decreased ROM, erythema, ROM: limited passive range of motion due to pain, in the right wrist, Tendon exam: postive for swelling, tenderness along extensor tendons of right hand at wrist level. Vital Signs: 22:34 BP 160 / 76; Pulse 85; Resp 20; Temp 98.4(O); Pulse Ox 100% ; Weight 97.52 kg; Height 5 vc1 ft. 5 in. (165.10 cm); Pain 10/10; 23:30 BP 164 / 71; Pulse 89; Resp 18; Pulse Ox 99% on R/A; eh3 22:34 Body Mass Index 35.78 (97.52 kg, 165.10 cm) vc1 MDM: 22:29 Patient medically screened. cp 23:00 Differential diagnosis: dislocation, closed fracture, contusion, tendonitis. cp 23:55 Data reviewed: vital signs, nurses notes, radiologic studies, plain films. cp 23:55 Test interpretation: by ED physician or midlevel provider: plain radiologic studies. cp Counseling: I had a detailed discussion with the patient and/or guardian regarding: the historical points, exam findings, and any diagnostic results supporting the discharge/admit diagnosis, radiology results, the need for outpatient follow up, a hand specialist, to return to the emergency department if symptoms worsen or persist or if there are any questions or concerns that arise at home. Response to treatment: the patient's symptoms have mildly improved after treatment, and as a result, I will discharge patient. 08/05 22:38 Order name: XRAY Wrist RIGHT 3 view cp 08/05 23:48 Order name: Splint; Complete Time: 00:02 cp Administered Medications: 23:05 Drug: Hydrocodone-Acetaminophen (7.5 mg-325 mg) 1 tabs Route: PO; 3 08/06 00:09 Follow up: Response: Pain is decreased 3 08/05 23:05 Drug: Ibuprofen 800 mg Route: PO; 3 08/06 00:09 Follow up: Response: Pain is decreased 3 00:02 Drug: predniSONE 60 mg Route: PO; 3 00:09 Follow up: Response: Pain is decreased [facility] Disposition: 00:33 Co-signature as Attending Physician, Theo Astorga MD. rn Disposition Summary: 08/05/22 23:55 Discharge Ordered Location: Home cp Problem: new cp Symptoms: have improved cp Condition: Stable cp Diagnosis - Pain in right wrist cp Followup: cp - With: Star Amanda MD - When: 1 week - Reason: Recheck today's complaints Followup: cp - With: Star Amanda MD - When: 2 - 3 days - Reason: Recheck today's complaints Discharge Instructions: - Discharge Summary Sheet cp - Wrist Pain, Adult cp Forms: - Medication Reconciliation Form cp - Thank You Letter cp - Antibiotic Education cp - Prescription Opioid Use cp Prescriptions: - Medrol (Ignacio) 4 mg Oral Tablets, Dose Pack - take 1 tablet by ORAL route as directed - follow package instructions; 1 cp packet; Refills: 0, Product Selection Permitted Signatures: Dispatcher [employer] EDTheo Mock MD MD rn Page, Corey, PA PA cp Shabnam Betancourt RN RN vc1 Monica Hassan RN RN eh3 Corrections: (The following items were deleted from the chart) 08/05 23:47 22:30 This 61 yrs old Female presents to ER via Ambulatory with complaints of Wrist cp Pain. cp
[2022-08-05] MEDS ORDERED: predniSONE 20 MG TAB ONE (23:57)
[2022-08-06 00:14] VITALS: TEMP 98.4
[2022-08-06 00:16] VITALS: BP 164/71; O2SAT 99
--- NOTE | 2022-08-06 10:52 | RAD REPORT ---
EXAM DESCRIPTION: XR Right Wrist Complete, 3 Views CLINICAL HISTORY: Pain TECHNIQUE: Frontal, lateral and oblique views of the right wrist. COMPARISON: No relevant prior studies available. FINDINGS: Bones/joints: No acute fracture. Mild to moderate multilevel degenerative changes most pronounced at the triscaphe, 1st carpometacarpal and 5th DIP articulations. No dislocation. Soft tissues: Unremarkable. No radiopaque foreign body. IMPRESSION: No acute injury. 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 The interpreting radiologist is fully responsible for the content of the report.
== END 2022-08-06 00:09 | disposition home or self-care (01) ==
LOC: ER 21:41
DX: M25.531 Pain in right wrist (principal); I10 Essential (primary) hypertension; Z88.0 Allergy status to penicillin
CPT/HCPCS: 73110; J7512; 99284

== ENCOUNTER 2022-08-22 23:53 | Emergency (ER) | payer OTHER ==
--- OUTSIDE RECORDS SUMMARY | 2022-08-22 23:57 | XMS REPORT | Continuity of Care Document ---
:1960 Author Organization [facility] t Address [address] [place] [address] Care Team Providers Name Role Phone GertrudisGoran Primary Care Physician DERRICK ZELAYA Attending Clinician Unavailable Kerry Donaldson MA Attending Clinician Unavailable DARREN DELGADILLO Attending Clinician Unavailable Darren Wheeler Attending Clinician Unknown, Attending Attending Clinician Unavailable EDD TDIWELL Attending Clinician Unavailable Edd Tidwell MD Attending Clinician Payers Payer Name Policy Type Policy Number Effective Date Expiration Date Ramos huntley [facility] [id number] 2021 00:00:00 Problems Condition Condition Condition Status Onset Resolution Last Treating Co mments Source Name Details Category Date Date Treatment Clinician Date No known No known Disease Unive rs active active ity of problems problems [facility] Allergies, Adverse Reactions, Alerts Allergy Allergy Status Severity Reaction(s) Onset Inactive Treating Comm ents Source Name Type Date Date Clinician NO KNOWN Drug Active Univers ALLERGIE Class ity of S [facility] Social History Social Habit Start Date Stop Date Quantity Comments Source Exposure to Not sure [facility] SARS-CoV-2 [facility] (event) [place] Tobacco use and 2021-02-14 2021-02-14 Never used Universit y of exposure 00:00:00 00:00:00 [facility] Alcohol intake 2021-02-14 2021-02-14 Lifetime University of 00:00:00 00:00:00 non-drinker [facility] (finding) [place] Sex Ass[birth year] At [birth year] Universit y of 00:00:00 00:00:00 [facility] Smoking Status Start Date Stop Date Source Current every day smoker 2021-02-14 00:00:[facility] Medications Ordered Filled Start Stop Current Ordering Indication Dosage Frequency Signature Comments Components Source Medication Medication Date Date Medication? Clinician (SIG) Name Name No known 2020-08 No Univers medications 0-30 ity of 17:38: [address] No known 2020-08 No Univers medications 0-30 ity of 17:38: [address] No known 2020-08 No Univers medications 0-30 ity of 17:38: [address] No known No Univers medications ity of [facility] No known No Univers medications ity of [facility] Vital Signs Vital Name Observation Time Observation Value Comments Source Systolic blood 2021-06-22 21:56:00 133 mm[Hg] [facility] Diastolic blood 2021-06-22 21:56:00 81 mm[Hg] Unive [facility] Heart rate 2021-06-22 21:56:00 111 /min Universi ty [facility] Body temperature 2021-06-22 21:56:00 36.22 [facility] Res[facility] rate 2021-06-22 21:56:00 16 /min [facility] Body height 2021-06-22 21:56:[address] [facility] Body weight 2021-06-22 21:56:[address] [facility] BMI 2021-06-22 21:56:00 37[facility]05 [facility] Oxygen saturation in 2021-06-22 21:56:00 99 /min [facility] Arterial blood by [facility] Pulse oximetry Branch Systolic blood 2021-02-14 15:16:00 126 mm[Hg] [facility]iver [facility] Diastolic blood 2021-02-14 15:16:00 55 mm[Hg] Unive [facility] Heart rate 2021-02-14 15:16:00 86 /min Universi ty [facility] Body temperature 2021-02-14 15:16:00 36.33 [facility] Respiratory rate 2021-02-14 15:16:00 17 /min [facility] Body weight 2021-02-14 15:16:00 110.814 kg [facility] Oxygen saturation in 2021-02-14 15:16:00 95 /min [facility] Arterial blood by [facility] Pulse oximetry Branch Procedures This patient has no known procedures. Encounters Start End Encounter Admission Attending Care Care Encounter Source Date/Time Date/Time Type Type Clinicians Facility Department ID 2022-03-13 [facility] [id number] 13:14:30 DERRICK [id number] [facility] 2022-03-12 [facility] [id number] [facility] 13:41:19 DERRICK [id number] [facility] 2021-11-18 2021-11-18 Case ELENI Donaldson [id number] Univers 00:00:00 00:00:00 Management Kerry THOMPSON [id number] [id number] [facility] [address] 2021-06-22 2021-06-22 [facility] [id number] Univers 17:10:00 23:59:[address] [facility] 2021-06-22 2021-06-22 [facility] ADAMA Delgadillo [id number] Univers 17:10:00 23:59:00 Encounter Darren Patrick PEDIATRIC [id number] [id number] [id number] [facility] [address] [facility] 2021-06-22 2021-06-22 Urgent Darren Delgadillo [id number] Univers 16:51:20 17:06:20 Care Unknown, Attending PEDIATRIC [id number] [id number] [id number] [facility] PRIMARY [address] [place] [facility] 2021-04-24 2021-04-24 Outpatient R [facility] [id number] Univers 10:20:00 10:20:[address] [facility] 2021-02-14 2021-02-14 Office Diann Adama [id number] Univers 09:59:43 11:33:12 Visit Edd Pediatric [id number] [id number] [id number] [place] [id number] [facility] 2021-02-14 2021-02-14 Outpatient R [facility] [id number] Univers 10:20:00 10:20:[address] [facility] Results This patient has no known results.
[2022-08-23] MEDS ORDERED: FENTANYL CITR 100 MCG/2 ML ONE (00:55)
[2022-08-23] MEDS ORDERED: KETOROLAC 30 MG/ML INJ ONE (00:55)
[2022-08-23] MEDS ORDERED: DIAZEPAM 5 MG TABLET ONE (00:55)
[2022-08-23] MEDS ORDERED: ONDANSETRON 4 MG/2 ML VIAL ONE (00:56)
[2022-08-23 01:23] LABS: Absolute Lymphocytes (CBC) 2.6 K/uL (0.7-4.9); Hematocrit 27.5 % (36.0-45.0); Lymphocytes % 13.5 % (15.3-44.8); MCV 60.8 fL (80-100); MPV 8.1 fL (7.6-11.3); RBC Red Blood Cell Count 4.52 M/uL (3.86-4.86)
[2022-08-23 01:36] LABS: Albumin 3.6 g/dL (3.4-5.0); Bilirubin Total 0.3 mg/dL (0.2-1.0); Potassium 4.3 mmol/L (3.5-5.1); Protein, Total 7.3 g/dL (6.4-8.2)
[2022-08-23 01:40] LABS: White Blood Cell Scan OK (OK)
[2022-08-23 01:41] LABS: Anisocytosis 1+; Blood Morphology Comment NOTED (NOT SEEN); Hypochromasia 2+; Macrocytosis 1+; Ovalocytes 1+; Platelet Estimate INCR; Stomatocytes 1+
[2022-08-23] MEDS ORDERED: NA CHLORIDE 0.9% 1,000 ML ONE (02:03)
[2022-08-23 03:03] LABS: SARS-CoV-2 Antigen Rapid Res Negative (Negative)
[2022-08-23] MEDS ORDERED: levoFLOXacin 250 MG TAB ONE (03:41)
[2022-08-23] MEDS ORDERED: PANTOPRAZOLE 40 MG INJ ONE (03:42)
[2022-08-23] MEDS ORDERED: CEFTRIAXONE 1000 MG/VIAL ONE (03:42)
[2022-08-23 03:57] LABS: Urine Blood Negative (Negative); Urine Glucose Negative (Negative); Urine Protein Negative (Negative); Urine Specific Gravity <=1.005 (1.005-1.030); Urine pH 5.5 (5.0-7.0)
--- NOTE | 2022-08-23 04:20 | ER ---
Nurse's Notes [facility] Name: Yumiko Bernard Age: 61 yrs Sex: Female : 1960 Arrival Date: 08/22/2022 Time: 23:57 Bed 14 Private MD: Diagnosis: Unspecified symptoms and signs involving the musculoskeletal system-LEFT GROIN;Anemia, unspecified;Dysuria;Elevated white blood cell count Presentation: 08/23 00:27 Chief complaint: Patient states: I was sleeping at home and when I woke up I felt like jb4 I pulled a muscle in my left upper leg. It worsened today around 2 pm. Coronavirus screen: At this time, the client does not indicate any symptoms associated with coronavirus-19. Ebola Screen: No symptoms or risks identified at this time. Initial Sepsis Screen: Does the patient meet any 2 criteria? No. Patient's initial sepsis screen is negative. Does the patient have a suspected source of infection? No. Patient's initial sepsis screen is negative. Risk Assessment: Do you want to hurt yourself or someone else? Patient reports no desire to harm self or others. Onset of symptoms was August 23, 2022. Transition of care: patient was not received from another setting of care. 00:27 Method Of Arrival: Wheelchair jb4 00:27 Acuity: RIMA 4 jb4 Historical: - Allergies: 00:29 PENICILLINS; jb4 - PMHx: 00:29 diabetes mellitus; Gastric Reflux; neuropathy; Hypertensive disorder; jb4 - PSHx: 00:29 back surgury; knee replacment; Cholecystectomy; hysterectomy; jb4 - Immunization history:: Adult Immunizations up to date, Client reports having NOT received the Covid vaccine. - Social history:: Smoking status: Patient reports the use of cigarette tobacco products, denies chronic smoking, but will smoke occasionally, Patient/guardian denies using alcohol, street drugs. Screenin:30 [facility] ED Fall Risk Assessment (Adult) History of falling in the last 3 months, jb4 including since admission No falls in past 3 months (0 pts) Confusion or Disorientation No (0 pts) Intoxicated or Sedated No (0 pts) Impaired Gait Yes (1 pt) Mobility Assist Device Used No (0 pt) Altered Elimination No (0 pt) Score/Fall Risk Level 0 - 2 = Low Risk Oriented to surroundings, Maintained a safe environment. Abuse screen: Denies threats or abuse. Nutritional screening: No deficits noted. Tuberculosis screening: No symptoms or risk factors identified. Assessment: 00:30 General: Appears in no apparent distress. uncomfortable, Behavior is calm, cooperative, jb4 appropriate for age. Pain: Complains of pain in left hamstring Pain does not radiate. Pain currently is 10 out of 10 on a pain scale. Neuro: Level of Consciousness is awake, alert, obeys commands, Oriented to person, place, time, situation. Cardiovascular: Respiratory: Airway is patent Respiratory effort is even, unlabored, Respiratory pattern is regular, symmetrical. GI: No signs and/or symptoms were reported involving the gastrointestinal system. : No signs and/or symptoms were reported regarding the genitourinary system. EENT: No signs and/or symptoms were reported regarding the EENT system. Derm: Skin is intact, Skin is pink, warm \T\ dry. Musculoskeletal: Circulation, motion, and sensation intact. Range of motion: intact in all extremities. 01:30 Reassessment: Patient appears in no apparent distress at this time. Patient and/or jb4 family updated on plan of care and expected duration. Pain level reassessed. Patient is alert, oriented x 3, equal unlabored respirations, skin warm/dry/pink. 03:00 Reassessment: Patient appears in no apparent distress at this time. Patient and/or jb4 family updated on plan of care and expected duration. Pain level reassessed. Patient is alert, oriented x 3, equal unlabored respirations, skin warm/dry/pink. 04:31 Reassessment: Patient appears in no apparent distress at this time. Patient and/or jb4 family updated on plan of care and expected duration. Pain level reassessed. Patient is alert, oriented x 3, equal unlabored respirations, skin warm/dry/pink. Vital Signs: 00:27 BP 164 / 58; Pulse 93; Resp 16; Temp 98.6(O); Pulse Ox 95% on R/A; Weight 99.79 kg (R); jb4 Height 5 ft. 5 in. (165.10 cm) (R); Pain 10/10; 01:00 BP 162 / 69; Pulse 98; Resp 16; Pulse Ox 95% on R/A; jb4 02:45 BP 155 / 66; Pulse 92; Resp 18; Pulse Ox 93% on R/A; jb4 03:45 BP 152 / 74; Pulse 96; Resp 18; Pulse Ox 94% on R/A; jb4 04:31 BP 109 / 98; Pulse 92; Resp 16; Pulse Ox 94% on R/A; jb4 00:27 Body Mass Index 36.61 (99.79 kg, 165.10 cm) jb4 ED Course: 08/22 23:57 Patient arrived in ED. ja2 08/23 00:06 Tony Londono MD is Attending Physician. antonia 00:27 Osorio Rivera, RN is Primary Nurse. jb4 00:29 Triage completed. jb4 00:29 Arm band placed on right wrist. jb4 00:30 Patient has correct armband on for positive identification. Bed in low position. Call jb4 light in reach. Side rails up X 1. Client placed on continuous cardiac and pulse oximetry monitoring. NIBP monitoring applied. 02:09 US Extremity Venous Unilateral Ltd In Process Unspecified. EDMS 02:13 Pelvis XRAY In Process Unspecified. EDMS 02:20 Inserted saline lock: 20 gauge in left forearm, using aseptic technique. Blood jb4 collected. 02:20 First set of blood cultures drawn by me. jb4 02:29 Lactate w/ 2H reflex if indic. Sent. jb4 02:29 Type And Screen Sent. jb4 02:29 SARS RAPID Sent. jb4 02:35 Initial lab(s) drawn, by me, sent to lab. Second set of blood cultures drawn by me. jb4 02:40 Blood Culture Adult (2) Sent. jb4 02:40 Lactate w/ 2H reflex if indic. Sent. jb4 03:30 CT Chest, Abdomen, Pelvis - W/Contrast In Process Unspecified. EDMS 03:32 Type And Screen Sent. jb4 03:32 Blood Culture Adult (2) Sent. jb4 04:19 Malick Christian MD is Referral Physician. antonia 04:31 No provider procedures requiring assistance completed. IV discontinued, intact, jb4 bleeding controlled, No redness/swelling at site. Pressure dressing applied. 04:36 Primary Nurse role handed off by Osorio Rivera, RN bb Administered Medications: 00:57 Drug: Valium (diazepam) 5 mg Route: PO; jb4 02:45 Follow up: Response: No adverse reaction; Marked relief of symptoms jb4 01:10 Drug: Ketorolac 30 mg Route: IVP; Site: right antecubital; jb4 01:45 Follow up: Response: No adverse reaction jb4 02:11 Drug: fentaNYL (PF) 25 mcg Route: IVP; Site: right antecubital; jb4 02:30 Follow up: Response: No adverse reaction; Marked relief of symptoms jb4 02:11 Drug: Zofran (Ondansetron) 4 mg Route: IVP; Site: right antecubital; jb4 02:30 Follow up: Response: No adverse reaction jb4 02:11 Drug: NS 0.9% 1000 ml Route: IV; Rate: 1 bolus; Site: right antecubital; jb4 04:33 Follow up: Response: No adverse reaction; IV Status: Completed infusion; IV Intake: jb4 1000ml 02:39 Drug: fentaNYL (PF) 25 mcg Route: IVP; Site: right antecubital; jb4 02:45 Follow up: Response: No adverse reaction; Marked relief of symptoms; Pain is decreased jb4 03:51 Drug: Rocephin (cefTRIAXone) 1 grams Route: IV; Rate: per protocol; Site: left forearm; jb4 04:33 Follow up: Response: No adverse reaction; IV Status: Completed infusion jb4 03:51 Drug: ProTONIX (pantoprazole) 40 mg Route: IVP; Site: left forearm; jb4 04:33 Follow up: Response: No adverse reaction jb4 03:51 Drug: LevaQUIN (levofloxacin) 500 mg Route: PO; jb4 04:33 Follow up: Response: No adverse reaction jb4 Medication: 00:30 VIS not applicable for this client. jb4 Intake: 04:33 IV: 1000ml; Total: 1000ml. jb4 Outcome: 04:19 Discharge ordered by MD. knight 04:31 Discharged to home via wheelchair, with family. jb4 04:31 Condition: stable 04:31 Discharge instructions given to patient, Instructed on discharge instructions, follow up and referral plans. medication usage, Demonstrated understanding of instructions, follow-up care, medications, Prescriptions given X 4. 04:35 Patient left the ED. jb4 04:40 Patient left the ED. jb4 Signatures: Dispatcher [employer] EDMD Tony Londono MD MD cha Ballard, Brenda, RN RN bb Osorio Rivera RN RN jb4 Caterina Yang Corrections: (The following items were deleted from the chart) 04:40 04:31 Discharge instructions given to patient, Instructed on discharge instructions, jb4 follow up and referral plans. medication usage, Demonstrated understanding of instructions, follow-up care, medications, Prescriptions given X 5 jb4
--- NOTE | 2022-08-23 04:20 | EDPHYS ---
Physician Documentation [facility] Name: Yumiko Bernard Age: 61 yrs Sex: Female : 1960 Arrival Date: 08/22/2022 Time: 23:57 Bed 14 Private MD: MAGUE Physician Tony Londono HPI: 08/23 00:46 This 61 yrs old Female presents to ER via Wheelchair with complaints of Hip antonia Pain, Leg Pain. Historical: - Allergies: 00:29 PENICILLINS; jb4 - PMHx: 00:29 diabetes mellitus; Gastric Reflux; neuropathy; Hypertensive disorder; jb4 - PSHx: 00:29 back surgury; knee replacment; Cholecystectomy; hysterectomy; jb4 - Immunization history:: Adult Immunizations up to date, Client reports having NOT received the Covid vaccine. - Social history:: Smoking status: Patient reports the use of cigarette tobacco products, denies chronic smoking, but will smoke occasionally, Patient/guardian denies using alcohol, street drugs. ROS: 00:49 Constitutional: Negative for fever, chills, and weight loss, Eyes: Negative for injury, antonia pain, redness, and discharge, ENT: Negative for injury, pain, and discharge, Neck: Negative for injury, pain, and swelling, Cardiovascular: Negative for chest pain, palpitations, and edema, Respiratory: Negative for shortness of breath, cough, wheezing, and pleuritic chest pain, Abdomen/GI: Negative for abdominal pain, nausea, vomiting, diarrhea, and constipation, Back: Negative for injury and pain, : Negative for injury, bleeding, discharge, and swelling, Skin: Negative for injury, rash, and discoloration, Neuro: Negative for headache, weakness, numbness, tingling, and seizure, Psych: Negative for depression, anxiety, suicide ideation, homicidal ideation, and hallucinations, Allergy/Immunology: Negative for hives, rash, and allergies, Endocrine: Negative for neck swelling, polydipsia, polyuria, polyphagia, and marked weight changes, Hematologic/Lymphatic: Negative for swollen nodes, abnormal bleeding, and unusual bruising. 00:49 MS/extremity: Positive for decreased range of motion, pain, tenderness, of the left upper thigh. Exam: 00:49 Constitutional: This is a well developed, well nourished patient who is awake, alert, antonia and in no acute distress. Head/Face: Normocephalic, atraumatic. Eyes: Pupils equal round and reactive to light, extra-ocular motions intact. Lids and lashes normal. Conjunctiva and sclera are non-icteric and not injected. Cornea within normal limits. Periorbital areas with no swelling, redness, or edema. ENT: Nares patent. No nasal discharge, no septal abnormalities noted. Tympanic membranes are normal and external auditory canals are clear. Oropharynx with no redness, swelling, or masses, exudates, or evidence of obstruction, uvula midline. Mucous membranes moist. Neck: Trachea midline, no thyromegaly or masses palpated, and no cervical lymphadenopathy. Supple, full range of motion without nuchal rigidity, or vertebral point tenderness. No Meningismus. Chest/axilla: Normal chest wall appearance and motion. Nontender with no deformity. No lesions are appreciated. Cardiovascular: Regular rate and rhythm with a normal S1 and S2. No gallops, murmurs, or rubs. Normal PMI, no JVD. No pulse deficits. Respiratory: Lungs have equal breath sounds bilaterally, clear to auscultation and percussion. No rales, rhonchi or wheezes noted. No increased work of breathing, no retractions or nasal flaring. Abdomen/GI: Soft, non-tender, with normal bowel sounds. No distension or tympany. No guarding or rebound. No evidence of tenderness throughout. Back: No spinal tenderness. No costovertebral tenderness. Full range of motion. Skin: Warm, dry with normal turgor. Normal color with no rashes, no lesions, and no evidence of cellulitis. Neuro: Awake and alert, GCS 15, oriented to person, place, time, and situation. Cranial nerves II-XII grossly intact. Motor strength 5/5 in all extremities. Sensory grossly intact. Cerebellar exam normal. Normal gait. Psych: Awake, alert, with orientation to person, place and time. Behavior, mood, and affect are within normal limits. 00:49 Musculoskeletal/extremity: ROM: limited active range of motion due to pain, limited passive range of motion due to pain, in the left upper thigh, DVT Exam: negative Homans' sign noted on exam, no appreciated bluish discoloration, no erythema, no increased warmth, pain, swelling, tenderness. Vital Signs: 00:27 BP 164 / 58; Pulse 93; Resp 16; Temp 98.6(O); Pulse Ox 95% on R/A; Weight 99.79 kg (R); jb4 Height 5 ft. 5 in. (165.10 cm) (R); Pain 10/10; 01:00 BP 162 / 69; Pulse 98; Resp 16; Pulse Ox 95% on R/A; jb4 02:45 BP 155 / 66; Pulse 92; Resp 18; Pulse Ox 93% on R/A; jb4 03:45 BP 152 / 74; Pulse 96; Resp 18; Pulse Ox 94% on R/A; jb4 04:31 BP 109 / 98; Pulse 92; Resp 16; Pulse Ox 94% on R/A; jb4 00:27 Body Mass Index 36.61 (99.79 kg, 165.10 cm) jb4 MDM: 00:06 Patient medically screened. antonia 00:50 Differential diagnosis: bursitis, strain. Data reviewed: vital signs, nurses notes, lab [facility] test result(s), radiologic studies, doppler, plain films. 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 Test interpretation: by ED physician or midlevel provider: plain radiologic studies. Counseling: I had a detailed discussion with the patient and/or guardian regarding: the historical points, exam findings, and any diagnostic results supporting the discharge/admit diagnosis, lab results, radiology results, the need for outpatient follow up, for definitive care, a family practitioner, a orthopedic surgeon. 08/23 00:43 Order name: CBC with Diff; Complete Time: 01:53 [facility] 08/23 00:43 Order name: Comprehensive Metabolic Panel; Complete Time: 01:53 [place] 08/23 01:28 Order name: CBC Smear Scan; Complete Time: 01:53 EDMS 08/23 01:55 Order name: Blood Culture Adult (2) [facility] 08/23 01:55 Order name: Lactate w/ 2H reflex if indic.; Complete Time: 03:19 [place] 08/23 01:55 Order name: SARS RAPID; Complete Time: 03:19 [place] 08/23 00:43 Order name: US Extremity Venous Unilateral Ltd [facility] 08/23 00:43 Order name: Pelvis XRAY [facility] 08/23 01:55 Order name: Urine Culture [facility] 08/23 01:55 Order name: Type And Screen; Complete Time: 04:28 [facility] 08/23 01:55 Order name: CT Chest, Abdomen, Pelvis - W/Contrast [facility] 08/23 03:57 Order name: Urine Dipstick-Ancillary; Complete Time: 04:28 EDMS 08/23 01:55 Order name: Urine Dipstick-Ancillary (obtain specimen); Complete Time: 03:51 [place] Administered Medications: 00:57 Drug: Valium (diazepam) 5 mg Route: PO; jb4 02:45 Follow up: Response: No adverse reaction; Marked relief of symptoms jb4 01:10 Drug: Ketorolac 30 mg Route: IVP; Site: right antecubital; jb4 01:45 Follow up: Response: No adverse reaction jb4 02:11 Drug: fentaNYL (PF) 25 mcg Route: IVP; Site: right antecubital; jb4 02:30 Follow up: Response: No adverse reaction; Marked relief of symptoms jb4 02:11 Drug: Zofran (Ondansetron) 4 mg Route: IVP; Site: right antecubital; jb4 02:30 Follow up: Response: No adverse reaction jb4 02:11 Drug: NS 0.9% 1000 ml Route: IV; Rate: 1 bolus; Site: right antecubital; jb4 04:33 Follow up: Response: No adverse reaction; IV Status: Completed infusion; IV Intake: jb4 1000ml 02:39 Drug: fentaNYL (PF) 25 mcg Route: IVP; Site: right antecubital; jb4 02:45 Follow up: Response: No adverse reaction; Marked relief of symptoms; Pain is decreased jb4 03:51 Drug: Rocephin (cefTRIAXone) 1 grams Route: IV; Rate: per protocol; Site: left forearm; jb4 04:33 Follow up: Response: No adverse reaction; IV Status: Completed infusion jb4 03:51 Drug: ProTONIX (pantoprazole) 40 mg Route: IVP; Site: left forearm; jb4 04:33 Follow up: Response: No adverse reaction jb4 03:51 Drug: LevaQUIN (levofloxacin) 500 mg Route: PO; jb4 04:33 Follow up: Response: No adverse reaction jb4 Disposition Summary: 08/23/22 04:19 Discharge Ordered Location: Home antonia Problem: new antonia Symptoms: have improved antonia Condition: Stable antonia Diagnosis - Unspecified symptoms and signs involving the musculoskeletal system - LEFT GROIN antonia - Anemia, unspecified antonia - Dysuria antonia - Elevated white blood cell count antonia Followup: antonia - With: Private Physician - When: 2 - 3 days - Reason: Recheck today's complaints, Continuance of care, Re-evaluation by your physician Followup: antonia - With: - When: 2 - 3 days - Reason: Recheck today's complaints, Re-evaluation by your physician Discharge Instructions: - Discharge Summary Sheet antonia - Adductor Muscle Strain antonia - Muscle Cramps and Spasms antonia - Muscle Strain antonia - Muscle Pain, Adult antonia - Muscle Strain, [id number] [facility] Forms: - Medication Reconciliation Form antonia - Thank You Letter antonia - Antibiotic Education antonia - Prescription Opioid Use [facility] Prescriptions: - Valium 5 mg Oral Tablet - take 1 tablet by ORAL route every 8 hours As needed; 15 tablet; Refills: 0, [facility] Product Selection Permitted - Diclofenac Sodium 75 mg Oral tablet,delayed release (DR/EC) - take 1 tablet by ORAL route 2 times per day; 20 tablet; Refills: 0, Product [place] Selection Permitted - levofloxacin 500 mg Oral Tablet - take 1 tablet by ORAL route once daily for 7 days; 7 tablet; Refills: 0, [facility] Product Selection Permitted - Protonix 40 mg Oral Tablet - take 1 tablet by ORAL route once daily; 30 tablet; Refills: 0, Product [facility] Selection Permitted Signatures: Dispatcher [employer] Tony Parikh MD MD cha Bryson, James RN RN jb4 Kaitlynn Martin PA-C PADieudonne sb4
[2022-08-23 05:04] VITALS: TEMP 98.6
[2022-08-23 05:21] VITALS: O2SAT 94
[2022-08-23 05:22] VITALS: BP 109/98
--- NOTE | 2022-08-23 19:57 | RAD REPORT ---
EXAM DESCRIPTION: RAD - Pelvis - 08/23/2022 2:12 am CLINICAL HISTORY: PAIN TECHNIQUE: Frontal view of the pelvis. COMPARISON: No relevant prior studies available. FINDINGS: Bones/joints: Bilateral posterior fusion hardware and interposition graft at L5-S1. No acute fracture. Mild degenerative changes at the hip joints bilaterally. No dislocation. Soft tissues: Unremarkable. IMPRESSION: No acute injury. Electronically signed by: Mendez Szymanski MD 08/23/2022 2:44 AM ASSISTANT OPERATIONS MANAGER Due to temporary technical issues with the PACS/Fluency reporting system, reports are being signed by the in house radiologists without review as a courtesy to insure prompt reporting. The interpreting radiologist is fully responsible for the content of the report.
--- NOTE | 2022-08-23 20:15 | RAD REPORT ---
EXAM DESCRIPTION: US - Extremity Venous Uni Ltd - 08/23/2022 2:07 am CLINICAL HISTORY: The patient is 61 years old and is Female; PAIN TECHNIQUE: Real-time duplex ultrasound scan of the left lower extremity veins integrating B-mode two -dimensional vascular structure, Doppler spectral analysis, color flow Doppler imaging and compressio n. COMPARISON: No relevant prior studies available. FINDINGS: Deep veins: Unremarkable. No DVT in the visualized common femoral, femoral, or poplite al veins. The veins demonstrate normal color flow, are normally compressible where visualized, with normal phasic flow and/or augmentation response. Soft tissues: No acute findings. IMPRESSION: No evidence of DVT in the left lower extremity veins. Electronically signed by: Ger Chadwick MD 08/23/2022 2:35 AM CONTACT CENTER ASSISTANT Due to temporary technical issues with the PACS/Fluency reporting system, reports are being signed by the in house radiologists without review as a courtesy to insure prompt reporting. The interpreting radiologist is fully responsible for the content of the report.
--- NOTE | 2022-08-23 20:18 | RAD REPORT ---
EXAM DESCRIPTION: CT - Chest Abdomen Pelvis W Cont - 08/23/2022 6:43 am CLINICAL HISTORY: The patient is 61 years old and is Female; ABD PAIN TECHNIQUE: Axial computed tomography images of the chest, abdomen and pelvis with intravenous contra st. Sagittal and coronal reformatted images were created and reviewed. This CT exam was performed using one or more of the following dose reduction techniques: automated exposure control, adjustme nt of the mA and/or kV according to patient size, and/or use of iterative reconstruction technique. COMPARISON: No relevant prior studies available. FINDINGS: CHEST: Lungs: Unremarkable. No mass. No consolidation. Pleural space: Unremarkable. No significant effusion. No pneumothorax. Heart: Unremarkable. No cardiomegaly. No significant pericardial effusion. No significant coronary artery calcifications. ABDOMEN: Liver: Hepatomegaly. Gallbladder and bile ducts: Unremarkable. No calcified stones. No ductal dilation. Pancreas: Unremarkable. No ductal dilation. No mass. Spleen: Calcification in the spleen. Adrenals: Unremarkable. No mass. Kidneys and ureters: Unremarkable. No hydronephrosis. No solid mass. Stomach and bowel: Unremarkable. No obstruction. No mucosal thickening. PELVIS: Appendix: No findings to suggest acute appendicitis. Bladder: Unremarkable. No mass. Reproductive: Uterus is not seen. CHEST, ABDOMEN and PELVIS: Intraperitoneal space: Unremarkable. No significant fluid collection. No free air. Bones/joints: Posterior suraj and screw fixation from L5 to S1. Old left rib fractures. No dislocation. Soft tissues: Unremarkable. Vasculature: Scattered atherosclerotic vascular calcifications. No aortic aneurysm. Lymph nodes: Unremarkable. No enlarged lymph nodes. IMPRESSION: No acute findings in the chest, abdomen or pelvis. Electronically signed by: Ger Chadwick MD 08/23/2022 4:09 AM MEDICAID SERVICE COORDINATOR Due to temporary technical issues with the PACS/Fluency reporting system, reports are being signed by the in house radiologists without review as a courtesy to insure prompt reporting. The interpreting radiologist is fully responsible for the content of the report.
== END 2022-08-23 04:40 | disposition home or self-care (01) ==
LOC: ER 23:53
DX: R29.91 Unspecified symptoms and signs involving the musculoskeletal system (principal); D64.9 Anemia, unspecified; R30.0 Dysuria; D72.829 Elevated white blood cell count, unspecified; I10 Essential (primary) hypertension; F17.210 Nicotine dependence, cigarettes, uncomplicated; Z88.0 Allergy status to penicillin; Z20.822 Contact with and (suspected) exposure to COVID-19
CPT/HCPCS: 87040 ×2; 87088; 85025; 87086; 36415; 86900; 86850; 86901; 83605; 81003; 80053; 71260; 74177; 72170; 93971; 99284; 87811; Q9967; C9113; J3010; J7030; J2405